=== PATIENT | male | born 1995 | race Two or more races ===

== ENCOUNTER 2024-07-27 14:50 | Emergency (ER) | payer SELFPAY ==
[~2024-07-27] VITALS: Ht 182.9 cm; Wt 143.4 kg
[2024-07-27] MEDS ORDERED: BACDST PO (17:36)
[2024-07-27] MEDS ORDERED: CEPH500C PO (17:36)
[2024-07-27 19:30] VITALS: BP 119/85; PULSE 77; RESP 16; TEMP 98; O2SAT 98
== END 2024-07-27 19:40 | disposition home or self-care (01) ==
LOC: ER 14:50
DX: L02.31 Cutaneous abscess of buttock (principal)